=== PATIENT | female | born 1975 | race Caucasian/White ===

== ENCOUNTER 2020-10-27 11:37 | Inpatient (IN) ==
[2020-10-27 11:45] VITALS: BMI 41.0
--- NOTE | 2020-10-27 12:06 | DR.GENAD ---
HPI Time Seen Time Seen by Provider: 10/27/20 11:57 PCP Primary Care Physician: NONE HPI Comment HPI Comment: Sitting on toilet after urinating without problems and felt "something start to come out" as below; still with discomfort and there is something fist sized in her vagina which is painful; she's been bleeding since it came out; she was not having a bm nor has she been straining recently; she has had a cough; she's also had heavy periods lasting up to two weeks for several months; she hasn't had pap in years nor has she seen a direct response consultant. She admits to fatigue especially after activity such as walking to mailbox or washing dishes; she's been pale and weak as well. Complaint/Symptoms Chief Complaint:: SITTING ON THE TOILET AND FELT AN SHARP PAIN IN THE BOTTOM OF MY STOMACH AND THEN FELT A "MASS" COME OUT, AND STILL FEEL IT BETWEEN MY LABIA COVID-19 Coronavirus risk:travel/contact w/high risk person: No Has patient experienced Coronavirus symptoms: No Source History Provided: Patient Mode of Arrival Mode of Arrival: Wheelchair Timing Onset of Chief Complaint: 10/27/20 PMH PMH Past Medical History: No Past Surgical History: Yes Surgical History: Family History History of Family Medical Conditions: Yes Family Medical History: Diabetes Mellitus and Hypertension Social History Does patient currently use any type of tobacco product: No Have you used tobacco products in the last 12 months: No Type of Tobacco Use: None Alcohol Use: None Do you use any recreational Drugs:: No Lives With: Spouse Lives Where: Home Travel Risk Coronavirus risk:travel/contact w/high risk person: No Has patient experienced Coronavirus symptoms: No Infectious screening In the last 2 months have you had wt loss of >10#?: NO Have you had fever, night sweats or hemotysis?: No Have you traveled outside the country in the last 6 months?: No Isolation: Standard ROS Review of Systems Eyes: No Symptoms Reported ENTM: No Symptoms Reported Cardiovascular: No Symptoms Reported Neurological: No Symptoms Reported Musculoskeletal: No Symptoms Reported Integumentary: No Symptoms Reported Hematologic/Lymphatic: No Symptoms Reported Endocrine: No Symptoms Reported Psychiatric: No Symptoms Reported PE Vital Signs Vitals: Temperature 98.5 F Pulse Rate 80 Respiratory Rate 20 Blood Pressure 127/64 O2 Sat by Pulse Oximetry 100 General Limitations: No Limitations General Appearance: Alert and In No Apparent Distress Head Head Exam: Normal Inspection Eyes Eye exam: Normal Appearance Neck Neck Exam: Normal Inspection Chest Chest Inspection: Normal Inspection Respiratory Respiratory Exam: Normal Lung Sounds Bilat Respiratory Exam: Bilateral: Clear to Auscultation Cardiovascular Cardiovascular Exam: Regular Rate and Normal Rhythm Abdominal Exam Abdominal Exam: Normal Inspection, Normal Bowel Sounds and Soft Extremities Extremities Exam: Normal Inspection Neurologic Neurological Exam: Alert and Oriented X3 Psychiatric Psychiatric Exam: Normal Affect and Normal Mood Skin Skin Exam: Warm, Dry, Intact and Normal Color Other Exam Other Exam: uterine prolapse protruding from vagina MDM Differential Diagnosis Differential Diagnosis: vaginal/uterine/rectal prolapse COURSE Reevaluation 1st: Resolved (Dr Landaverde reduced prolapse with good results) Consultation Call Returned: 12:14 (Dr Landaverde in to evaluate pt) ROR Labs Reviewed Laboratory Results Reviewed?: Yes Result Diagrams: 10/27/20 12:31 10/27/20 12:31 Laboratory: WBC 4.4 X10^3/uL (3.6-10.0) 10/27/20 12:31 RBC 2.40 X10^6/uL (3.5-5.4) L 10/27/20 12:31 Hgb 3.8 g/dL (12.0-16.0) L* 10/27/20 12:31 Hct 14.0 % (36.0-47.0) L* 10/27/20 12:31 MCV 58.4 fL (80.0-100.0) L 10/27/20 12:31 MCH 15.8 pg (27.0-34.0) L 10/27/20 12:31 MCHC 27.0 g/dL (33.0-35.0) L 10/27/20 12:31 RDW 21.4 % (11.6-16.5) H 10/27/20 12:31 Plt Count 310 X10^3/uL (150.0-450.0) 10/27/20 12:31 Plt Count Comment Adequate (ADEQUATE) 10/27/20 12:31 MPV 8.0 fL (7.4-11.0) 10/27/20 12:31 Neut % (Auto) 82.0 % (42.0-75.0) H 10/27/20 12:31 Lymph % (Auto) 11.5 % (21.0-51.0) L 10/27/20 12:31 [place] % (Auto) 5.4 % (0.0-13.0) 10/27/20 12:31 Eos % (Auto) 0.5 % (0.9-2.9) L 10/27/20 12:31 Baso % (Auto) 0.6 % (0.2-1.0) 10/27/20 12:31 Neut # (Auto) 3.6 x10^3/uL (2.2-4.8) 10/27/20 12:31 Lymph # (Auto) 0.5 X10^3/uL (1.3-2.9) L 10/27/20 12:31 [place] # (Auto) 0.2 x10^3/uL (0.3-0.8) L 10/27/20 12:31 Eos # (Auto) 0.0 x10^3/uL (0.0-0.2) 10/27/20 12:31 Baso # (Auto) 0.0 X10^3/uL (0.0-0.1) 10/27/20 12:31 Absolute Nucleated RBC 0.7 /100WBC 10/27/20 12:31 Plt Morphology Comment Normal (NORMAL) 10/27/20 12:31 RBC Morphology Abnormal (NORMAL) A 10/27/20 12:31 Hypochromasia 3+ A 10/27/20 12:31 Anisocytosis 1+ A 10/27/20 12:31 Microcytosis 3+ A 10/27/20 12:31 Sodium 142 mmol/L (136-145) 10/27/20 12:31 Corrected Sodium 143 mmol/L (136-145) 10/27/20 12:31 Potassium 4.4 mmol/L (3.5-5.1) 10/27/20 12:31 Chloride 107 mmol/L (98-107) 10/27/20 12:31 Carbon Dioxide 25.1 mmol/L (21-32) 10/27/20 12:31 BUN 9 mg/dL (7-18) 10/27/20 12:31 Creatinine 0.87 mg/dL (0.55-1.02) 10/27/20 12:31 Est GFR (MDRD) Af Amer > 60 (>60) 10/27/20 12:31 Est GFR (MDRD) Non-Af > 60 (>60) 10/27/20 12:31 Glucose 137 mg/dL (65-99) H 10/27/20 12:31 Calcium 8.4 mg/dL (8.5-10.1) L 10/27/20 12:31 Corrected Calcium 9.2 mg/dL (8.5-10.1) 10/27/20 12:31 Iron 6 ug/dL (50-175) L 10/27/20 12:31 Transferrin 330 mg/dL (202-364) 10/27/20 12:31 Ferritin 1 ng/mL (8-252) L 10/27/20 12:31 Ferritin Cancelled 10/27/20 12:31 Total Bilirubin 0.50 mg/dL (0.2-1.0) 10/27/20 12:31 AST 13 Units/L (15-37) L 10/27/20 12:31 ALT 14 Units/L (12-78) 10/27/20 12:31 Alkaline Phosphatase 61 Units/L (46-116) 10/27/20 12:31 Total Protein 6.9 g/dL (6.4-8.2) 10/27/20 12:31 Albumin 3.0 g/dL (3.4-5.0) L 10/27/20 12:31 Globulin 3.9 g/dL (2.5-4.5) 10/27/20 12:31 Albumin/Globulin Ratio 0.8 Ratio (1.1-2.1) L 10/27/20 12:31 Vitamin B12 306 pg/mL (193-986) 10/27/20 12:31 Folate 17.6 ng/mL (>8.6) 10/27/20 12:31 Blood Type O NEGATIVE 10/27/20 12:53 Antibody Screen Negative 10/27/20 12:53 Crossmatch See Detail 10/27/20 12:53 Opioid Opioid Risk Tool Age (Rod box if 16-45): No History of Preadolescent Sexual Abuse: No Total: 0 Total Score Risk Category: Low Risk Copyright: Ki BARRIENTOS predicting aberrant behaviors Diagnosis Discharge Problem: Complete uterine prolapse, Severe anemia Menorrhagia Qualifiers: Menorrhagia type: with irregular cycle Qualified Code(s): N92.1 - Excessive and frequent menstruation with irregular cycle Instructions Forms: Patient Portal Social Distancing
[2020-10-27 12:51] LABS: ALANINE AMINOTRANSFERASE 14 Units/L (12-78); ALKALINE PHOSPHATASE 61 Units/L (46-116); ASPARTATE AMINO TRANSFERASE 13 Units/L (15-37); BLOOD UREA NITROGEN 9 mg/dL (7-18); CALCIUM 8.4 mg/dL (8.5-10.1); CARBON DIOXIDE 25.1 mmol/L (21-32); CHLORIDE 107 mmol/L (98-107); COR CA(FOR HYPOALB) 9.2 mg/dL (8.5-10.1); COR NA(FOR HYPERGLY) 143 mmol/L (136-145); CREATININE 0.87 mg/dL (0.55-1.02); SODIUM 142 mmol/L (136-145); TOTAL PROTEIN 6.9 g/dL (6.4-8.2); eGFR NON BLACK RACES > 60 (>60)
[2020-10-27 13:04] LABS: BASOPHILS % (AUTO) 0.6 % (0.2-1.0); EOSINOPHILS % (AUTO) 0.5 % (0.9-2.9); LYMPHOCYTES # (AUTO) 0.5 X10^3/uL (1.3-2.9); LYMPHOCYTES % (AUTO) 11.5 % (21.0-51.0); MEAN CORPUSCULAR HEMOGLOBIN 15.8 pg (27.0-34.0); MEAN CORPUSCULAR VOLUME 58.4 fL (80.0-100.0); MONOCYTES # (AUTO) 0.2 x10^3/uL (0.3-0.8); MONOCYTES % (AUTO) 5.4 % (0.0-13.0); NEUTROPHILS # (AUTO) 3.6 x10^3/uL (2.2-4.8); PLATELET COUNT 310 X10^3/uL (150.0-450.0); RED CELL DISTRIBUTION WIDTH 21.4 % (11.6-16.5); WHITE BLOOD COUNT 4.4 X10^3/uL (3.6-10.0)
[2020-10-27 13:05] LABS: HEMOGLOBIN 3.8 g/dL (12.0-16.0)
[2020-10-27 13:10] LABS: PLATELET MORPHOLOGY COMMENT NORMAL (NORMAL)
[2020-10-27 13:11] LABS: ANISOCYTOSIS 1+; HYPOCHROMASIA 3+; MICROCYTOSIS 3+
[2020-10-27 13:22] LABS: IRON 6 ug/dL (50-175)
[2020-10-27] MEDS ORDERED: NS 250 ML IV 250 ML IV ONE (16:21)
[2020-10-27] MEDS ORDERED: TYLENOL 325 MG TAB PO PRN (21:19)
[2020-10-28 00:50] LABS: HEMATOCRIT 18.7 % (36.0-47.0); HEMOGLOBIN 5.5 g/dL (12.0-16.0)
[2020-10-28] MEDS ORDERED: INFeD or DEXFERRUM 25 MG in NS 100 ML IV 100 ML IV ONE (09:00)
--- NOTE | 2020-10-28 10:02 | US ---
HISTORYPT C/O VAGINAL BLEEDING X 8 MTHS questionable prolapse of the uterusSTUDYTRANSVAGINALCOMPARISONTECHNIQUEMultiple watson scale and color flow Doppler images of the pe lvis were obtained. Study was performed post transabdominal and transvaginal approach.FINDINGSThe ut erus is enlarged measuring 14 cm in length by 8.14 cm AP x 8.6 cm transverse on transabdominal scanni ng.. A hyperechoic lower uterine segment mass probably a leiomyoma measures 5.8 by 6.3 x 7 cm. Altern atively this could be and upper cervical mass. . The endometrial stripe is normal in size measuring 7 mm. The right and left adnexa are unremarkable. The echotexture of the right and left ovaries are unremarkable. The right and left ovaries are normal in size. The right ovary measures [3.3 x 2.4 x 2.4 cm]. Normal vascular flow is seen in the right ovary. The left ovary is not visualized.. No adn exal mass or free fluid can be identified.On transvaginal scan the echogenic mass appears to represen t the cervix this may is be a cervical mass versus a cervical fibroid.IMPRESSIONThe uterus is enlarge d in the lower uterine segment is heterogeneous echogenic and enlarged. This on on transvaginal scann ing appears to be a cervical mass differential includes cervical neoplasm or versus benign neoplasm s uch as a cervical leiomyoma. The endometrium is mildly thickened for patient's age at 7 mm.The right ovary is normal. The left ovary is not visualized.Electronically signed by: CED MATHIS (Oct 28, 2020 10:00:18)
[2020-10-28 10:07] LABS: BASOPHILS % (AUTO) 0.3 % (0.2-1.0); EOSINOPHILS % (AUTO) 0.2 % (0.9-2.9); HEMATOCRIT 27.5 % (36.0-47.0); LYMPHOCYTES # (AUTO) 0.8 X10^3/uL (1.3-2.9); LYMPHOCYTES % (AUTO) 8.5 % (21.0-51.0); MEAN CORPUSCULAR HEMOGLOBIN 20.9 pg (27.0-34.0); MEAN CORPUSCULAR HGB CONC 30.7 g/dL (33.0-35.0); MEAN CORPUSCULAR VOLUME 68.2 fL (80.0-100.0); MEAN PLATELET VOLUME 8.2 fL (7.4-11.0); MONOCYTES # (AUTO) 0.8 x10^3/uL (0.3-0.8); MONOCYTES % (AUTO) 7.5 % (0.0-13.0); NEUTROPHILS # (AUTO) 8.3 x10^3/uL (2.2-4.8); NEUTROPHILS % (AUTO) 83.5 % (42.0-75.0); PLATELET COUNT 260 X10^3/uL (150.0-450.0); RED BLOOD COUNT 4.03 X10^6/uL (3.5-5.4); RED CELL DISTRIBUTION WIDTH 28.8 % (11.6-16.5)
[2020-10-28 10:11] LABS: HEMOGLOBIN 8.4 g/dL (12.0-16.0)
[2020-10-28 10:12] LABS: PLATELET MORPHOLOGY COMMENT NORMAL (NORMAL)
[2020-10-28 10:13] LABS: ANISOCYTOSIS 3+; HYPOCHROMASIA 2+; MICROCYTOSIS 1+
[2020-10-28 10:20] LABS: ALANINE AMINOTRANSFERASE 12 Units/L (12-78); ALBUMIN 3.2 g/dL (3.4-5.0); ALKALINE PHOSPHATASE 74 Units/L (46-116); ASPARTATE AMINO TRANSFERASE 14 Units/L (15-37); BLOOD UREA NITROGEN 7 mg/dL (7-18); CALCIUM 8.9 mg/dL (8.5-10.1); CARBON DIOXIDE 25.4 mmol/L (21-32); CHLORIDE 105 mmol/L (98-107); COR CA(FOR HYPOALB) 9.5 mg/dL (8.5-10.1); COR NA(FOR HYPERGLY) 140 mmol/L (136-145); CREATININE 0.85 mg/dL (0.55-1.02); SODIUM 140 mmol/L (136-145); TOTAL PROTEIN 7.8 g/dL (6.4-8.2); eGFR NON BLACK RACES > 60 (>60)
[2020-10-28] MEDS ORDERED: LASIX IVP ONE (10:38)
[2020-10-28] MEDS ORDERED: FENTANYL INJ 100 mcg ONE (10:40)
[2020-10-28] MEDS ORDERED: LR 1000 ML IV 1,000 ML IV ONE (10:57)
[2020-10-28] MEDS ORDERED: INFED OR DEXFERRUM IV ONE (11:00)
[2020-10-28] MEDS ORDERED: NS IV ONE (11:00)
[2020-10-28] MEDS ORDERED: DIPRIVAN VIAL ONE (11:15)
[2020-10-28] MEDS ORDERED: ULTANE GAS IN ONE (11:15)
[2020-10-28] MEDS ORDERED: ZOFRAN INJ 4 MG VIAL ONE (11:15)
[2020-10-28] MEDS ORDERED: VERSED ONE (11:15)
[2020-10-28] MEDS ORDERED: XYLOCAINE 1 % (PLAIN) ONE (11:15)
[2020-10-28] MEDS ORDERED: BETADINE SOLN ONE (11:25)
[2020-10-28] MEDS ORDERED: DILAUDID INJ IVP PRN (11:58)
[2020-10-28] MEDS ORDERED: BARHEMSYS INJ IVP PRN (11:58)
[2020-10-28] MEDS ORDERED: PHENERGAN INJ 25 MG IM PRN (11:58)
[2020-10-28] MEDS ORDERED: REGLAN INJ 10 MG VIAL IVP PRN (11:58)
[2020-10-28] MEDS ORDERED: BENADRYL INJ 50 MG VIAL IVP PRN (11:58)
[2020-10-28] MEDS ORDERED: ZOFRAN INJ 4 MG VIAL IVP PRN (11:58)
[2020-10-29] MEDS ORDERED: NS 500 ML IV 500 ML IV PRN (08:56)
[2020-10-29 19:23] LABS: HEMATOCRIT 29.7 % (36.0-47.0); HEMOGLOBIN 9.2 g/dL (12.0-16.0)
[2020-10-30 05:12] LABS: BASOPHILS # (AUTO) 0.1 X10^3/uL (0.0-0.1); EOSINOPHILS # (AUTO) 0.1 x10^3/uL (0.0-0.2); EOSINOPHILS % (AUTO) 0.6 % (0.9-2.9); HEMATOCRIT 27.7 % (36.0-47.0); HEMOGLOBIN 8.8 g/dL (12.0-16.0); LYMPHOCYTES # (AUTO) 1.6 X10^3/uL (1.3-2.9); LYMPHOCYTES % (AUTO) 15.4 % (21.0-51.0); MEAN CORPUSCULAR HGB CONC 31.9 g/dL (33.0-35.0); MEAN CORPUSCULAR VOLUME 72.2 fL (80.0-100.0); MEAN PLATELET VOLUME 8.2 fL (7.4-11.0); MONOCYTES # (AUTO) 0.7 x10^3/uL (0.3-0.8); MONOCYTES % (AUTO) 6.8 % (0.0-13.0); NEUTROPHILS % (AUTO) 76.2 % (42.0-75.0); PLATELET COUNT 215 X10^3/uL (150.0-450.0); RED BLOOD COUNT 3.84 X10^6/uL (3.5-5.4); RED CELL DISTRIBUTION WIDTH 29.9 % (11.6-16.5); WHITE BLOOD COUNT 10.6 X10^3/uL (3.6-10.0)
[2020-10-30 05:19] LABS: ALANINE AMINOTRANSFERASE 11 Units/L (12-78); ALBUMIN 2.6 g/dL (3.4-5.0); ALKALINE PHOSPHATASE 60 Units/L (46-116); ASPARTATE AMINO TRANSFERASE 10 Units/L (15-37); BLOOD UREA NITROGEN 14 mg/dL (7-18); CALCIUM 8.6 mg/dL (8.5-10.1); CARBON DIOXIDE 26.1 mmol/L (21-32); CHLORIDE 108 mmol/L (98-107); COR CA(FOR HYPOALB) 9.7 mg/dL (8.5-10.1); CREATININE 0.94 mg/dL (0.55-1.02); SODIUM 143 mmol/L (136-145); TOTAL PROTEIN 6.8 g/dL (6.4-8.2); eGFR NON BLACK RACES > 60 (>60)
[2020-10-30 05:38] LABS: ANISOCYTOSIS 3+; HYPOCHROMASIA 1+; MICROCYTOSIS 2+; PLATELET MORPHOLOGY COMMENT NORMAL (NORMAL)
[2020-10-30] MEDS ORDERED: TORADOL 30 MG VIAL ONE ×2 (08:29→08:40)
[2020-10-30] MEDS ORDERED: DECADRON INJ ONE ×2 (08:29→08:40)
[2020-10-30] MEDS ORDERED: BRIDION ONE (08:29)
[2020-10-30] MEDS ORDERED: OFIRMEV IV 1000 MG VIAL 1,000 MG/100 ML VIAL IV ONE (08:30)
[2020-10-30] MEDS ORDERED: NS 1000 ML 1,000 ML ONE (08:30)
[2020-10-30] MEDS ORDERED: FENTANYL INJ 100 mcg ONE (08:30)
[2020-10-30] MEDS ORDERED: ZEMURON 50 MG VIAL ONE ×2 (08:30→08:40)
[2020-10-30] MEDS ORDERED: BETADINE SOLN ONE (08:35)
[2020-10-30] MEDS ORDERED: NS 100 ML IV 100 ML IV ONE (08:40)
[2020-10-30] MEDS ORDERED: VERSED ONE (08:40)
[2020-10-30] MEDS ORDERED: ANCEF VIAL 1 GRAM ONE (08:40)
[2020-10-30] MEDS ORDERED: ZOFRAN INJ 4 MG VIAL ONE (08:40)
[2020-10-30] MEDS ORDERED: XYLOCAINE 1 % (PLAIN) ONE (08:40)
[2020-10-30] MEDS ORDERED: DIPRIVAN VIAL ONE (08:40)
[2020-10-30] MEDS ORDERED: ULTANE GAS IN ONE (08:40)
[2020-10-30] MEDS ORDERED: LASIX ONE (10:29)
[2020-10-30] MEDS ORDERED: ZOFRAN INJ 4 MG VIAL IVP PRN ×2 (11:25→11:58)
[2020-10-30] MEDS ORDERED: BENADRYL INJ 50 MG VIAL IVP PRN (11:25)
[2020-10-30] MEDS ORDERED: BARHEMSYS INJ IVP PRN (11:25)
[2020-10-30] MEDS ORDERED: REGLAN INJ 10 MG VIAL IVP PRN (11:25)
[2020-10-30] MEDS ORDERED: PHENERGAN INJ 25 MG IM PRN ×2 (11:25→11:58)
[2020-10-30] MEDS: DILAUDID INJ IVP PRN ×2 (11:45→11:50)
[2020-10-30] MEDS ORDERED: DILAUDID INJ ONE (11:48)
[2020-10-30] MEDS ORDERED: PERCOCET TAB 5/325 MG PO PRN (11:58)
[2020-10-30] MEDS: D5 LR 1000 ML 1,000 ML IV SCH ×2 (12:36→20:56)
[2020-10-30 13:05] LABS: HEMATOCRIT 37.2 % (36.0-47.0); HEMOGLOBIN 11.6 g/dL (12.0-16.0)
[2020-10-30] MEDS: TORADOL 30 MG VIAL IVP SCH ×2 (13:08→17:00)
[2020-10-30] MEDS: NORCO 5/325 MG TAB PO PRN ×2 (14:12→21:21)
[2020-10-30] MEDS ORDERED: NS IRRIGATION* 1,000 ML ONE (14:45)
[2020-10-30 16:32] LABS: HEMATOCRIT 32.8 % (36.0-47.0); HEMOGLOBIN 10.2 g/dL (12.0-16.0)
[2020-10-31] MEDS: TORADOL 30 MG VIAL IVP SCH ×3 (00:32→12:46)
[2020-10-31] MEDS: D5 LR 1000 ML 1,000 ML IV SCH ×2 (03:17→12:47)
[2020-10-31] MEDS: NORCO 5/325 MG TAB PO PRN ×2 (03:18→08:30)
[2020-10-31 05:19] LABS: BASOPHILS # (AUTO) 0.1 X10^3/uL (0.0-0.1); BASOPHILS % (AUTO) 0.7 % (0.2-1.0); HEMATOCRIT 30.8 % (36.0-47.0); HEMOGLOBIN 9.9 g/dL (12.0-16.0); MEAN CORPUSCULAR HGB CONC 32.2 g/dL (33.0-35.0); MEAN CORPUSCULAR VOLUME 74.6 fL (80.0-100.0); MEAN PLATELET VOLUME 8.2 fL (7.4-11.0); MONOCYTES # (AUTO) 0.7 x10^3/uL (0.3-0.8); MONOCYTES % (AUTO) 6.4 % (0.0-13.0); NEUTROPHILS # (AUTO) 9.5 x10^3/uL (2.2-4.8); NEUTROPHILS % (AUTO) 83.9 % (42.0-75.0); PLATELET COUNT 213 X10^3/uL (150.0-450.0); RED BLOOD COUNT 4.12 X10^6/uL (3.5-5.4); WHITE BLOOD COUNT 11.3 X10^3/uL (3.6-10.0)
[2020-10-31 05:27] LABS: ALANINE AMINOTRANSFERASE 10 Units/L (12-78); ALBUMIN 2.2 g/dL (3.4-5.0); ALKALINE PHOSPHATASE 56 Units/L (46-116); ASPARTATE AMINO TRANSFERASE 8 Units/L (15-37); BLOOD UREA NITROGEN 15 mg/dL (7-18); CALCIUM 8.3 mg/dL (8.5-10.1); CARBON DIOXIDE 26.7 mmol/L (21-32); CHLORIDE 111 mmol/L (98-107); COR CA(FOR HYPOALB) 9.7 mg/dL (8.5-10.1); COR NA(FOR HYPERGLY) 147 mmol/L (136-145); SODIUM 146 mmol/L (136-145); TOTAL PROTEIN 6.2 g/dL (6.4-8.2); eGFR NON BLACK RACES > 60 (>60)
[2020-10-31 05:46] LABS: PLATELET MORPHOLOGY COMMENT NORMAL (NORMAL)
[2020-10-31 05:47] LABS: ANISOCYTOSIS 3+; HYPOCHROMASIA 1+; POIKILOCYTOSIS PRESENT
[2020-10-31 05:48] LABS: OVALOCYTES PRESENT
--- NOTE | 2020-10-31 08:57 | NOTE.PGOBP ---
Progress note [employer] Post-op Subjective Data Subjective: No complaints, (+) flatus, no BM. Tolerating regular diet. No N/V. Ambulating well. Nuñez draining well. Pain well controlled by toradol. Objective Data Result Diagrams: 10/31/20 04:50 10/31/20 04:50 Objective Data: CV= RRR no MRG Lungs=CTA Bilaterally Abd=(+) BS, soft, ND, appropriately tender near incision. Bandage dry. Ext= No edema, NT, No Cords. Graduated Compression Stockings/Sequential Compression Devices Bilaterally. Assessment Assessment: stable Plan (1) S/P abdominal supracervical subtotal hysterectomy: Plan: She apparently got a regular diet when clear liquids was ordered and she had eaten more than half before it was found by nursing. She is doing well and likely will have no issues from this. She desires to shower and I have discussed with the nursing staff that she be allowed to do so. After her shower they are remove her dressing and lightly cover with a non-occlusive dressing. She may go home whenever she can ambulate and is passing gas. She is to f/u with me next week early for staple management. She is aware that she needs general healthcare maintenance and will discuss this more with Dr. Landaverde.
[2020-10-31] MEDS ORDERED: TORADOL 30 MG VIAL IVP PRN (11:57)
[2020-10-31 13:17] VITALS: BP 140/72
[2020-11-01] MEDS ORDERED: TORADOL 30 MG VIAL IM PRN (11:57)
== END 2020-10-31 15:00 | disposition home or self-care (01) | DRG 742 ==
LOC: ER 11:37 → ICU 13:47
PROVIDERS: ADMIT Obstetrics & Gynecology Obstetrics; ATTEND Obstetrics & Gynecology Obstetrics
DX: D62 Acute posthemorrhagic anemia; N93.8 Other specified abnormal uterine and vaginal bleeding; Z20.822 Contact with and (suspected) exposure to COVID-19; D25.9 Leiomyoma of uterus, unspecified